=== PATIENT | female | born 1980 | race Caucasian/White ===

== ENCOUNTER 2024-01-18 17:51 | Emergency (ER) | payer OTHER, SELFPAY ==
[2024-01-18 18:26] VITALS: BP 134/86; PULSE 109; RESP 16; TEMP 36.7; O2SAT 97; BMI 39.5
--- NOTE | 2024-01-18 18:51 | ED_ITS ---
HPI - Wound/Laceration General Chief Complaint: Laceration/Wound Stated Complaint: cut forehead, fall Time Seen by Provider: 01/18/24 18:09 History of Present Illness HPI narrative: This 43-year-old female comes in with a laceration to her left forehead. She was holding the leash of her Rottweiler dog and got pulled when the dog ran. She lunged forward and hit her head on a table or some sort of object outside. She did not have any loss of consciousness. She has a laceration on her forehead without any sign of other injury. She states that her tetanus status is up-to-date. Related Data Home Medications Medication Instructions Recorded Confirmed No Known Home Medications 01/18/24 01/18/24 Allergies Allergy/AdvReac Type Severity Reaction Status Date / Time hydrocodone AdvReac Mild Headache Verified 01/18/24 18:20 Review of Systems Status of ROS: Reports: 10 or more systems reviewed and unremarkable except as noted in History and below Narrative: Constitutional: No fevers, no weight gain or loss. Eyes: No discharge. No vision changes. HENT: No congestion, no sore throat, no ear pain. Cardiovascular: No chest pain, no palpitations. Respiratory: No shortness of breath, no wheezes, no cough. Gastrointestinal: No abdominal pain, no vomiting, no diarrhea. Genitourinary: No dysuria, no hematuria. Musculoskeletal: Normal range of motion. Skin: No rashes, no pruritis. Neurological: No dizziness, weakness, sensory change, speech change. Endo/Heme/Allergies: No bruising or bleeding. No polydipsia. Pysch: no suicidality, no anxiety, no insomnia. All other systems reviewed and are negative. [facility] Medical History (Updated 01/18/24 @ 18:54 by Tye Botello MD) Plantar fasciitis ?M72.2 - Plantar fascial fibromatosis (ICD-10) Surgical History (Updated 12/24/23 @ 15:47 by Luke Breen) History of nasal septoplasty (1999) ?Z98.890 - Other specified postprocedural states (ICD-10) History of section ?Z98.891 - History of uterine scar from previous surgery (ICD-10) Hx of cholecystectomy ?Z90.49 - Acquired absence of other specified parts of digestive tract (ICD- 10) Hx of tonsillectomy ?Z90.89 - Acquired absence of other organs (ICD-10) H/O varicose vein stripping ?Z98.890 - Other specified postprocedural states (ICD-10) Family History (Updated 12/24/23 @ 15:49 by Luke Breen) Aunt Breast cancer, Onset Age: 55 Mother Depression Father Testicle cancer Other Epilepsy Glaucoma Macular degeneration Social History (Updated 12/24/23 @ 15:50 by Luke Breen) Narrative: 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 HEENT: 2.5 cm linear laceration on the forehead above the left eyebrow. Neck: Normal range of motion. Nontender. Supple. Heart: Regular. No murmurs. Normal rate. Intact distal pulses. Lungs: Clear to auscultation. No chest discomfort. No wheezes, rhonchi, or rales. Abdomen: Normal bowel sounds. Nontender. No rebound tenderness. Genitalia: Deferred. Back: No midline tenderness. Normal range of motion. Extremities: Normal range of motion. No injury. Skin: No rash. Warm. No erythema or pallor. Neurologic: No altered sensation. No weakness. Alert and oriented. Psychiatric: No suicidality. No anxiety or depression. No insomnia. Nursing notes and vitals signs are reviewed. Const: Vital Signs, click to edit/add: Vital Signs - 24 hr 01/18/24 18:26 Temperature 98.1 F Pulse Rate [Pulse Oximeter] 109 H Respiratory Rate 16 Blood Pressure [Ri ght Upper Arm] 134/86 Pulse Oximetry 97 Oxygen Delivery Me thod Room Air Course Vital Signs Vital signs: Initial Vital Signs Temperature 98.1 F 01/18/24 18:26 Temperature Source Temporal Artery Scan 01/18/24 18:26 Pulse Rate 109 H 01/18/24 18:26 Pulse Rhythm Regular 01/18/24 18:26 Pulse Strength 3+ Normal 01/18/24 18:26 Respiratory Rate 16 01/18/24 18:26 Blood Pressure 134/86 01/18/24 18:26 Blood Pressure Mean 102 01/18/24 18:26 Blood Pressure Position Sitting 01/18/24 18:26 Pulse Oximetry 97 01/18/24 18:26 Oxygen Delivery Method Room Air 01/18/24 18:26 Vital Signs Temperature 98.1 F 01/18/24 18:26 Pulse Rate 109 H 01/18/24 18:26 Respiratory Rate 16 01/18/24 18:26 Blood Pressure 134/86 01/18/24 18:26 Pulse Oximetry 97 01/18/24 18:26 Oxygen Delivery Method Room Air 01/18/24 18:26 Temperature 98.1 F 01/18/24 18:26 Pulse Rate 109 H 01/18/24 18:26 Respiratory Rate 16 01/18/24 18:26 Blood Pressure 134/86 01/18/24 18:26 Pulse Oximetry 97 01/18/24 18:26 Oxygen Delivery Method Room Air 01/18/24 18:26 MDM - Wound/Laceration MDM Narrative Medical decision making narrative: This patient has laceration on her forehead. There was no loss of consciousness her other complication to this injury. There is no need for imaging studies. I discussed repair options with the patient who preferred to have suture repair done. After anesthesia with 1% lidocaine with epinephrine the wound was cleansed and explored to its base. I placed 5 sutures in inte rrupted fashion using 5.0 Ethilon suture. This approximated the wound edges nicely. Instructions regarding wound care were given including the need to return to urgent care or clinic in 5-7 days for suture removal. Discharge Plan Discharge Clinical Impression: Laceration Patient Disposition: Home, Self-Care Condition: Improved Additional Instructions: Keep wound clean and dry. Follow-up with clinic or urgent care in 5-7 days for suture removal. Return if worsening. Prescriptions: No Action No Known Home Medications Follow Up/Referrals: Yareli Goodwin MD [Primary Care Provider] - Stand Alone Forms: 20x200 Info Instructions
[2024-01-18 19:14] VITALS: BP 134/86; PULSE 109; RESP 16; TEMP 36.7; O2SAT 97
== END 2024-01-18 19:15 | disposition home or self-care (01) ==
PROVIDERS: Emergency Provider Emergency Medicine Emergency Medical Services; PCP Family Medicine
DX: S01.81XA Laceration without foreign body of other part of head, initial encounter (principal); W18.00XA Striking against unspecified object with subsequent fall, initial encounter
CPT/HCPCS: 12001; 99283; 99284

== ENCOUNTER 2024-05-02 10:28 | Outpatient (CLI) | payer OTHER, SELFPAY | END 2024-05-02 10:29 | disposition home or self-care (01) | PROVIDERS: PCP Family Medicine; Visit Provider Physician Assistant Medical | DX: Z00.00 Encounter for general adult medical examination without abnormal findings (principal); E55.9 Vitamin D deficiency, unspecified; I10 Essential (primary) hypertension; R53.83 Other fatigue; F41.9 Anxiety disorder, unspecified; E66.01 Morbid (severe) obesity due to excess calories; Z11.59 Encounter for screening for other viral diseases; Z13.1 Encounter for screening for diabetes mellitus; Z13.6 Encounter for screening for cardiovascular disorders; Z13.0 Encounter for screening for diseases of the blood and blood-forming organs and certain disorders involving the immune mechanism | CPT/HCPCS: 80053; 80061; 84443; 86703; 86803 ==

== ENCOUNTER 2024-05-24 14:41 | Outpatient (CLI) | payer OTHER, SELFPAY ==
[2024-05-24 16:07] VITALS: BP 139/80; PULSE 114
--- NOTE | 2024-05-24 16:10 | W.PM.STED ---
Stress Test Note Date Date Seen: 05/24/24 Date of test: 05/24/24 Providers Referring provider: Darlin Paul Primary care provider: Darlin Paul Stress test physician: Chani Keys Stress Test Note Stress test ordered: Stress Echo Indication for test: Chest pain Stress test medicine: None Results discussion: Resting EKG: Sinus rhythm, 100 beats per minute. Resting blood pressure: 132/86 Stress test: Patient was consented on stress test ordered. Patient exercised on the treadmill following standard Santos protocol. She exercised to 7 minutes 32 seconds, achieving 9.1 Mets. She requested this. Due to exercise fatigue. She had no chest pain. She had a maximum heart rate of 157 which was 105% of a calculated target heart rate of 149. She had a maximal blood pressure of 190/90 with a rate pressure product of 26,030. Hypertensive response to exercise noted. No evidence of any ischemia or arrhythmia was noted. Echo images are pending to couple this for a full formal diagnostic. Impression: Subjectively negative, objectively negative EKG portion of this stress test. Follow up suggested: Patient was discharged home in stable condition, will await results from her primary provider.
== END 2024-05-24 14:42 | disposition home or self-care (01) ==
LOC: STRESS 14:47
PROVIDERS: PCP Physician Assistant Medical; Visit Provider Family Medicine
DX: R07.9 Chest pain, unspecified (principal)
CPT/HCPCS: 93016; 93325; 93351

== ENCOUNTER 2024-05-31 12:35 | Outpatient (CLI) | payer OTHER, SELFPAY ==
--- NOTE | 2024-05-31 13:20 | CRLHL7_ITS ---
For Patients: As a result of the Century Cures Act, medical imaging exams and procedure reports are released immediately into your electronic medical record. You may view this report before your referring provider. If you have questions, please contact your health care provider. BILATERAL SCREENING MAMMOGRAM WITH COMPUTER-AIDED DETECTION AND TOMOSYNTHESIS TECHNIQUE: CC and MLO views were obtained. These mammographic images have been obtained using full-field digital technique. These mammographic images were interpreted with the benefit of computer-aided detection. Breast Tomosynthesis was used in this interpretation. COMPARISON FILM: Baseline. FINDINGS: There are scattered areas of fibroglandular density. IMPRESSION: There is no radiographic evidence for malignancy. ASSESSMENT: BI-RADS Category 2: Benign RECOMMENDATION: Routine screening mammogram in 1 year. A lay language report of this examination will be provided to the patient. Evans Hillman M.D. Diagnostic Radiologist [email or web address] SP/Dictated by: Evans Hillman MD @ 06/01/2024 9:28:00 AM (Electronically Signed)
== END 2024-05-31 12:36 | disposition home or self-care (01) ==
LOC: MAMMO 12:35
PROVIDERS: PCP Physician Assistant Medical; Visit Provider Physician Assistant Medical
DX: Z12.31 Encounter for screening mammogram for malignant neoplasm of breast (principal)
CPT/HCPCS: 77063; 77067

== ENCOUNTER 2024-06-08 19:47 | Outpatient (CLI) | payer OTHER, SELFPAY ==
--- NOTE | 2024-07-12 08:54 | W.PM.SLEEP ---
Sleep Study Details Details Interpreting Provider: Jelly Date of Sleep Study: 06/08/24 Sleep Study Details: STUDY TYPE:? Home unattended ? BMI:? 40 ORDERING PROVIDER:Trevor Reaves INDICATION:? Concerned about sleep apnea ? SLEEP SUMMARY:? 495 minutes monitored RESPIRATORY SUMMARY:? AHI 22.2, supine 18.4, right lateral 36.4, left lateral 13.1 Low oxygen 76 9% of study oxygen less than 90% Snoring 93.3% PERIODIC LIMB MOVEMENTS OF SLEEP:? Not recorded CARDIAC:? Range 74-123, mean 93.2 IMPRESSION:? Moderate obstructive sleep apnea with significant desaturations RECOMMENDATION: Treatment option see include weight loss and CPAP AutoSet 4-17.
== END 2024-06-08 19:48 | disposition home or self-care (01) ==
LOC: SLEEP 19:48
PROVIDERS: PCP Physician Assistant Medical; Visit Provider Otolaryngology
DX: G47.33 Obstructive sleep apnea (adult) (pediatric) (principal)
CPT/HCPCS: 95806

== ENCOUNTER 2024-10-15 15:41 | Emergency (ER) | payer OTHER, SELFPAY ==
[2024-10-15 15:48] VITALS: BP 148/84; PULSE 84; RESP 20; TEMP 36.7; O2SAT 98; BMI 43.3
--- NOTE | 2024-10-15 16:00 | ED_ITS ---
HPI - Abdominal Pain General Chief Complaint: Abdominal Pain Stated Complaint: possible kidney stones Time Seen by Provider: 10/15/24 15:46 History of Present Illness HPI narrative: 44-year-old female comes in reporting left flank pain and left abdominal pain. She states that she had similar pain about a week ago that lasted for a few hours and then dissipated. Over the past day or so the pain has returned in the same area and has intensified. She states that she has a history of kidney stones and this feels like another 1. She does have some nausea with vomiting. Related Data Home Medications ?Medication ?Instructions ?Recorded ?Confirmed cetirizine 10 mg capsule (Zyrtec) 10 mg PO QDAY PRN 05/02/24 06/30/24 fluticasone propionate 50 1 spray intranasal QDAY 05/02/24 06/30/24 mcg/actuation nasal spray,suspension (Flonase Allergy Relief) Previous Rx's ?Medication ?Instructions ?Recorded valsartan 80 1 tab PO QDAY #90 tabs 08/05/24 mg-hydrochlorothiazide 12.5 mg tablet Allergies Allergy/AdvReac Type Severity Reaction Status Date / Time hydrocodone AdvReac Mild Headache Verified 06/30/24 14:31 Review of Systems Status of ROS Reports: 10 or more systems reviewed and unremarkable except as noted in History and below Narrative Constitutional: No fevers, no weight gain or loss. Eyes: No discharge. No vision changes. HENT: No congestion, no sore throat, no ear pain. Cardiovascular: No chest pain, no palpitations. Respiratory: No shortness of breath, no wheezes, no cough. Gastrointestinal: Left flank pain radiating into the left abdomen with associated nausea and vomiting. Genitourinary: No dysuria, no hematuria. Musculoskeletal: Normal range of motion. Skin: No rashes, no pruritis. Neurological: No dizziness, weakness, sensory change, speech change. Endo/Heme/Allergies: No bruising or bleeding. No polydipsia. Pysch: no suicidality, no anxiety, no insomnia. All other systems reviewed and are negative. [facility] Medical History (Updated 10/15/24 @ 19:29 by Tye Botello MD) Plantar fasciitis ?M72.2 - Plantar fascial fibromatosis (ICD-10) Surgical History (Updated 12/24/23 @ 15:47 by Luke Breen) History of nasal septoplasty (1999) ?Z98.890 - Other specified postprocedural states (ICD-10) History of section ?Z98.891 - History of uterine scar from previous surgery (ICD-10) Hx of cholecystectomy ?Z90.49 - Acquired absence of other specified parts of digestive tract (ICD- 10) Hx of tonsillectomy ?Z90.89 - Acquired absence of other organs (ICD-10) H/O varicose vein stripping ?Z98.890 - Other specified postprocedural states (ICD-10) Family History (Updated 05/02/24 @ 10:34 by Darlin Paul PA-C) Aunt Breast cancer, Onset Age: 55 Mother High blood pressure Father Testicle cancer Son Alopecia Other Epilepsy Glaucoma Macular degeneration Social History (Updated 05/31/24 @ 13:33 by Tamie Menjivar MD) 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 [place], horses, dogs, cats rarely to none consumes alcohol Former tobacco abuse- 6/day, 15 pack years (Quit in 30's) no recreational drugs. Smoking Status: Former smoker What tobacco products do you use: cigarettes Smoking quit date/years: >15 years ago Do you use any of these nicotine containing products: None How often do you have a drink containing alcohol: monthly or less AUDIT-C Alcohol total score: 1 Non-prescribed substance use: denies use service: No Exam Narrative: Exam Narrative: Constitutional: Well-developed, well-nourished, no acute distress. HEENT: Normocephalic, atraumatic. Neck: Normal range of motion. Nontender. Supple. Heart: Regular. No murmurs. Normal rate. Intact distal pulses. Lungs: Clear to auscultation. No chest discomfort. No wheezes, rhonchi, or rales. Abdomen: Normal bowel sounds. No rebound tenderness. Pain in the left flank radiating into the left abdomen. Genitalia: Deferred. Back: No midline tenderness. Normal range of motion. Extremities: Normal range of motion. No injury. Skin: Intact. No rash. Warm. No erythema or pallor. Neurologic: No altered sensation. No weakness. Alert and oriented. Psychiatric: No suicidality. No anxiety or depression. No insomnia. Nursing notes and vitals signs are reviewed. Const: Vital Signs, click to edit/add: Vital Signs - 24 hr 10/15/24 15:48 Temperature 98.1 F Pulse Rate [Pulse Oximeter] 84 Respiratory Rate 20 Blood Pressure [Ri ght Upper Arm] 148/84 H Pulse Oximetry 98 Oxygen Delivery Me thod Room Air Course Vital Signs Vital signs: Initial Vital Signs Temperature 98.1 F 10/15/24 15:48 Temperature Source Temporal Artery Scan 10/15/24 15:48 Pulse Rate 84 10/15/24 15:48 Respiratory Rate 20 10/15/24 15:48 Blood Pressure 148/84 H 10/15/24 15:48 Blood Pressure Mean 105 10/15/24 15:48 Pulse Oximetry 98 10/15/24 15:48 Oxygen Delivery Method Room Air 10/15/24 15:48 Vital Signs Temperature 98.1 F 10/15/24 15:48 Pulse Rate 84 10/15/24 15:48 Respiratory Rate 20 10/15/24 15:48 Blood Pressure 148/84 H 10/15/24 15:48 Pulse Oximetry 98 10/15/24 15:48 Oxygen Delivery Method Room Air 10/15/24 15:48 Temperature 98.1 F 10/15/24 15:48 Pulse Rate 84 10/15/24 15:48 Respiratory Rate 20 10/15/24 15:48 Blood Pressure 148/84 H 10/15/24 15:48 Pulse Oximetry 98 10/15/24 15:48 Oxygen Delivery Method Room Air 10/15/24 15:48 Medications Administered Medications: Generic Name Dose Route Start Last Admin Trade Name Freq PRN Reason Stop Dose Admin Hydromorphone HCl 0.5 mg 10/15/24 18:14 10/15/24 18:23 Hydromorphone 0.5 Mg/0.5 Ml Inj IVP 10/15/24 18:15 0.5 mg ONCE ONE Administration Discontinued Medications Generic Name Dose Route Start Last Admin Trade Name Freq PRN Reason Stop Dose Admin Hydromorphone HCl 0.5 mg 10/15/24 15:59 10/15/24 16:29 Hydromorphone 0.5 Mg/0.5 Ml Inj IVP 10/15/24 16:00 0.5 mg ONCE ONE Administration Hydromorphone HCl 0.5 mg 10/15/24 16:47 10/15/24 16:53 Hydromorphone 0.5 Mg/0.5 Ml Inj IVP 10/15/24 16:48 0.5 mg ONCE ONE Administration Ceftriaxone Sodium 1 gm/ 100 mls @ 200 mls/hr 10/15/24 17:31 10/15/24 18:23 Sodium Chloride IVPB 10/15/24 17:32 200 mls/hr ONCE ONE Administration Ketorolac Tromethamine 30 mg 10/15/24 15:59 10/15/24 16:29 Ketorolac 30 Mg/Ml Inj IVP 10/15/24 16:00 30 mg ONCE ONE Administration Ondansetron HCl 4 mg 10/15/24 15:59 10/15/24 16:29 Ondansetron 2 Mg/Ml Inj IVP 10/15/24 16:00 4 mg ONCE ONE Administration MDM - Abdominal Pain MDM Narrative Medical decision making narrative: This patient comes in with left flank pain and has a history of kidney stones. CT scan of the abdomen and pelvis is obtained and does show an obstructive stone in the left proximal ureter measuring 7 mm. Urinalysis also shows of urinary tract infection. The patient does have normal vital signs. She is can planing of pain and did receive doses of Toradol and Dilaudid with some relief. Seeing a complicated infection with the presence of a kidney stone I did recommend calling to arrange for follow-up at least or transfer. [facility] was [facility] and they state that they are not taking any referrals unless that comes from a hospitalist for a patient that is in the hospital. They also state that their hospital is full currently. I relayed this information to the patient and her and offered checking with other hospital systems. They prefer to return home. I stated that I could provide medications for them but it will not attend to the underlying problem which would require services of urologist. There is a possibility that she could pass this stone given its size but more likely she will need some intervention. She does have normal vital signs and is a preferring to return home. I advised her regarding return with worsening symptoms. She received [facility] prescriptions for Toradol, Ronan, and Zofran. She also received [facility] prescription for Augmentin. She did receive a g of Rocephin in the emergency department here. Lab Data Labs: Lab Results 10/15/24 Range/Units 16:44 Urine Color Yellow (Yellow) Urine Appearance Cloudy A (Clear) Urine pH 6.5 (5.0-8.5) Ur Specific [place] 1.025 (1.000-1.030) Urine Protein Negative (Negative) Urine Glucose (UA) Negative (Negative) Urine Ketones Negative (Negative) Urine Blood 2+ A (Negative) Urine Nitrite Negative (Negative) Urine Bilirubin Negative (Negative) Urine Urobilinogen 0.2 (0.2-1.0) Ur Leukocyte Esterase 1+ A (Negative) Urine RBC 25-50 A (0-2) Urine WBC 10-25 A (0-5) Ur Squamous Epith Cells Moderate A (None-Few) Urine Bacteria None (None) Imaging Data CT scan - abdomen: Radiologist's impression: 1. Obstructing 0.7 cm calculus at the proximal left ureter, resulting in [id number] left hydronephrosis. 2. Significant left perinephric inflammation is present, raising concern for superimposed infection. Recommend correlation with urinalysis. 3. Additional subtle punctate calculi in the lower pole of the left kidney. Discharge Plan Discharge Clinical Impression: Calculus, ureteral, Urinary tract infection Patient Disposition: Home w/ Parent or Adult Condition: Stable Additional Instructions: Take medications as prescribed and needed. Return if worsening or not improving. Follow-up with urology clinic for ongoing management. Prescriptions: No Action fluticasone propionate [Flonase Allergy Relief] 50 mcg/actuation spray,suspension 1 spray intranasal QDAY Rx Instructions: administer into each nostril Zyrtec 10 mg capsule 10 mg PO QDAY PRN valsartan-hydrochlorothiazide 80-12.5 mg tablet 1 tab PO QDAY Qty: 90 1RF Rx Instructions: one tablet once daily for blood pressure Follow Up/Referrals: Darlin Paul PA-C [Primary Care Provider] - Stand Alone Forms: [employer] Info Instructions
[2024-10-15] MEDS: ONDANSETRON 2 MG/ML inj 4 MG IVP (16:29)
[2024-10-15] MEDS: KETOROLAC 30 MG/ML inj IVP (16:29)
[2024-10-15] MEDS: HYDROmorphone 0.5 mg/0.5 ml inj IVP ×3 (16:29→18:23)
[2024-10-15 16:49] LABS: Appearance Urine Cloudy (Clear); Bilirubin Urine Negative (Negative); Blood Urine 2+ (Negative); Color Urine Yellow (Yellow); Glucose Urine Negative (Negative); Ketones Urine Negative (Negative); Leukocyte Esterase Urine 1+ (Negative); Nitrite Urine Negative (Negative); Protein Urine Negative (Negative); Specific Gravity Urine 1.025 (1.000-1.030); Urobilinogen Urine 0.2 (0.2-1.0); pH Urine 6.5 (5.0-8.5)
[2024-10-15 17:00] LABS: RBC Urine 25-50 (0-2); Squamous Epithelial Cell Urine Moderate (None-Few)
--- NOTE | 2024-10-15 17:31 | CRLHL7_ITS ---
For Patients: As a result of the Century Cures Act, medical imaging exams and procedure reports are released immediately into your electronic medical record. You may view this report before your referring provider. If you have questions, please contact your health care provider. INDICATION: Left flank pain. History of ureteral stones. TECHNIQUE: CT abdomen and pelvis without contrast. COMPARISON: CT abdomen/pelvis dated 02/16/2020. FINDINGS: Lower chest: Stable 0.3 cm pulmonary nodule in the right lower lobe. Stable 0.4 cm pulmonary nodule in the left lower lobe. No focal consolidation. Evaluation of solid organs is limited secondary to lack of IV contrast administration. Liver: Too small to characterize hypodense hepatic lesions, likely benign in the absence of a known malignancy. Gallbladder and bile ducts: Post cholecystectomy. Pancreas: Unremarkable. Spleen: Unremarkable. Adrenal glands: Unremarkable. Kidneys: 0.7 cm calculus at the proximal left ureter, results in [id number] left hydronephrosis. There is significant left perinephric inflammation as well. Additional subtle punctate calculi in the lower pole of the left kidney. Retroperitoneum: No lymphadenopathy. Bowel and mesentery: Bowel is not obstructed. No significant ascites, no pneumoperitoneum. Normal appendix. Bladder: Unremarkable for degree of distention. Reproductive organs: Unremarkable. Pelvic lymph nodes: No lymphadenopathy. Vessels: Unremarkable for unenhanced study. Abdominal wall: No acute abdominal wall abnormality. Bones: Multilevel degenerative changes of the spine. No suspicious/aggressive focal osseous lesion. IMPRESSION: 1. Obstructing 0.7 cm calculus at the proximal left ureter, resulting in [id number] left hydronephrosis. 2. Significant left perinephric inflammation is present, raising concern for superimposed infection. Recommend correlation with urinalysis. 3. Additional subtle punctate calculi in the lower pole of the left kidney. Please note that all CT scans at this facility use dose modulation, iterative reconstruction, and/or weight-based dosing when appropriate to reduce radiation dose to as low as reasonably achievable. Dictated by Ciera Ramirez MD @ 10/15/2024 6:15:20 PM (Electronically Signed)
[2024-10-15] MEDS: cefTRIAXone 1 GM in 0.9 % SODIUM CHLORIDE Mini-bag 100 ML IVPB (18:23)
== END 2024-10-15 19:39 | disposition home or self-care (01) ==
PROVIDERS: Emergency Provider Emergency Medicine Emergency Medical Services; PCP Physician Assistant Medical
DX: N20.1 Calculus of ureter (principal); N39.0 Urinary tract infection, site not specified
CPT/HCPCS: 74176; 81001; 87086; 87186; 96365; 96375; 99284; J0696; J1171; J1885; J2405

== ENCOUNTER 2024-10-20 11:36 | Outpatient (CLI) | payer OTHER, SELFPAY | END 2024-10-20 11:37 | disposition home or self-care (01) | LOC: NFLDREF 10-24 23:51 | PROVIDERS: PCP Physician Assistant Medical; Referring Provider Physician Assistant Medical; Visit Provider Physician Assistant Medical | DX: N20.0 Calculus of kidney (principal) | CPT/HCPCS: 87086 ==